=== PATIENT | male | born 1965 | race Caucasian/White ===

== ENCOUNTER 2022-10-19 04:39 | Day surgery (SDC) | payer OTHER ==
[2022-10-13 17:32] VITALS: BMI 39.2
[2022-10-19] MEDS ORDERED: FENTANYL CITRATE/PF 50 MCG/ML VIAL ONE ×4 (12:59→15:44)
[2022-10-19] MEDS ORDERED: MIDAZOLAM HCL 2 MG/2 ML SINGLE DOSE VIAL ONE (12:59)
[2022-10-19] MEDS ORDERED: PROPOFOL 20 ML ONE (13:00)
[2022-10-19] MEDS ORDERED: ROCURONIUM BROMIDE 50 MG/5 ML SYRINGE ONE (13:01)
[2022-10-19] MEDS ORDERED: ceFAZolin 2 GRAM PREMIX BAG IVPB ONE (13:26)
[2022-10-19] MEDS ORDERED: ONDANSETRON 4 MG/2 ML VIAL IVPUSH PRN (14:42)
[2022-10-19] MEDS ORDERED: PROMETHAZINE HCL 25 MG/1 ML VIAL IVPUSH PRN (14:42)
[2022-10-19] MEDS ORDERED: oxyCODONE HCL 5 MG TABLET PO PRN (14:42)
[2022-10-19] MEDS ORDERED: LACTATED RINGERS SOLUTION 1,000 ML IV SCH (14:45)
[2022-10-19 16:36] VITALS: RESP 18
[2022-10-19 18:04] VITALS: BP 143/90; PULSE 82; TEMP 98.6
== END 2022-10-19 18:06 | disposition home or self-care (01) ==
LOC: JASU-SURG 04:39
PROVIDERS: ATTEND Surgery
PROC: 8E0W4CZ Robotic Assisted Procedure of Trunk Region, Percutaneous Endoscopic Approach (ICD-10-PCS; 2022-10-19)
PROC: 0YQ54ZZ Repair Right Inguinal Region, Percutaneous Endoscopic Approach (ICD-10-PCS; principal; 2022-10-19 10:00)
DX: K40.90 Unilateral inguinal hernia, without obstruction or gangrene, not specified as recurrent (principal); Z53.8 Procedure and treatment not carried out for other reasons
CPT/HCPCS: 49650; S2900; 94760